=== PATIENT | male | born 1990 | race Hispanic/Latino ===

== ENCOUNTER 2017-08-02 20:04 | Emergency (ER) | payer SELFPAY ==
[2017-08-02 20:35] VITALS: BP 147/96
[2017-08-02] MEDS ORDERED: PERCOCET 5/325 PO ONE (20:41)
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
== END 2017-08-03 | disposition left against medical advice (07) ==
LOC: ED 20:04
DX: M25.531 Pain in right wrist (principal); Z53.21 Procedure and treatment not carried out due to patient leaving prior to being seen by health care provider

== ENCOUNTER 2017-08-04 01:52 | Emergency (ER) | payer SELFPAY ==
[2017-08-04 02:16] VITALS: BP 139/91
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
[2017-08-04] MEDS ORDERED: NORCO 7.5/325 PO ONE (03:12)
== END 2017-08-04 03:50 | disposition home or self-care (01) ==
LOC: ED 01:52
DX: S52.611A Displaced fracture of right ulna styloid process, initial encounter for closed fracture (principal); S52.501A Unspecified fracture of the lower end of right radius, initial encounter for closed fracture; F17.200 Nicotine dependence, unspecified, uncomplicated; V89.1XXA Person injured in unspecified nonmotor-vehicle accident, nontraffic, initial encounter; Y93.89 Activity, other specified; Y92.89 Other specified places as the place of occurrence of the external cause; Y99.8 Other external cause status
CPT/HCPCS: 99282